=== PATIENT | female | born 1955 ===

== ENCOUNTER 2024-09-09 09:32 | Outpatient (CLI) | payer MEDICARE, SELFPAY ==
--- NOTE | 2024-09-09 09:38 | MR_ITS ---
WS: [id number] MRI LUMBAR SPINE NONCONTRAST HISTORY: LUMBAR RADICULOPATHY COMPARISON: None available. TECHNIQUE: Sagittal and axial multisequence imaging is submitted. Straightening of the normal cervical lordosis. Mild disc space narrowing and desiccation at cervical spine. LEFT rotary scoliosis lumbar spine. No marrow edema or acute fracture. Mild anterior wedging of T12 by 25%. The remaining vertebral bodies are maintained in height. Advanced degenerative disc disease with narrowing at T11-12. 3.6 mm retrolisthesis of L3. 2 mm retrolisthesis of L4. Conus terminates normally at L1-2 disc level. Liver is enlarged extending greater than 17 cm in length. L1-L2: Normal. L2-L3: Mild annular disc bulging with mild ligamentum flavum and facet arthritis. Mild bilateral foraminal stenosis. Chronic reactive endplate changes at L2 and L3. L3-L4: Diffuse annular disc bulging with a moderate size central disc protrusion. Osteophytic ridging and asymmetric disc bulging to the RIGHT. Moderate ligamentum flavum and facet arthritis. Fluid in the facet joint. Disc protrusion encroaches and narrows the subarticular recesses. Moderate to severe central, bilateral subarticular recess and RIGHT foraminal stenosis. Minimal LEFT foraminal stenosis. There is encroachment upon the traversing L4 nerve roots and the RIGHT exiting L3 nerve root. L4-L5: Diffuse annular disc bulging with ligamentum flavum and facet arthritis. Mild central, subarticular recess and foraminal stenosis. Mild encroachment upon the subarticular recesses and traversing L5 nerve roots. L5-S1: Mild disc bulging and facet and ligamentum flavum hypertrophy. No significant stenosis. Paravertebral soft tissues are negative. MR/MR lumbar spine wo con* [id number] IMPRESSION: 1. Degenerative LEFT rotoscoliosis lumbar spine. 2. Remote T12 25% compression fracture. 3. Retrolisthesis of L3 and L4. 4. L3-4: Moderate size central disc protrusion with osteophytic ridging and fa cet joint arthropathy. Moderate to severe central, bilateral subarticular reces s and RIGHT foraminal stenosis. Minimal LEFT foraminal stenosis. Encroachment u sam the traversing L4 and exiting RIGHT L3 nerve roots. 5. L4-5: Mild central, subarticular recess and foraminal stenosis. 6. L2-3: Mild foraminal stenosis.
== END 2024-09-09 09:33 | disposition home or self-care (01) ==
LOC: RAD 09:32
PROVIDERS: Visit Provider Obstetrics & Gynecology
DX: M54.16 Radiculopathy, lumbar region (principal); M41.86 Other forms of scoliosis, lumbar region; M48.54XA Collapsed vertebra, not elsewhere classified, thoracic region, initial encounter for fracture; M43.16 Spondylolisthesis, lumbar region; M51.26 Other intervertebral disc displacement, lumbar region; M47.896 Other spondylosis, lumbar region; M48.061 Spinal stenosis, lumbar region without neurogenic claudication; R93.7 Abnormal findings on diagnostic imaging of other parts of musculoskeletal system; M50.30 Other cervical disc degeneration, unspecified cervical region; M51.34 Other intervertebral disc degeneration, thoracic region; R16.0 Hepatomegaly, not elsewhere classified; M51.369 Other intervertebral disc degeneration, lumbar region without mention of lumbar back pain or lower extremity pain; M24.28 Disorder of ligament, vertebrae; M51.379 Other intervertebral disc degeneration, lumbosacral region without mention of lumbar back pain or lower extremity pain; M47.897 Other spondylosis, lumbosacral region
CPT/HCPCS: 72148